=== PATIENT | male | born 2000 | race African-American/Black ===

== ENCOUNTER 2021-11-05 15:10 | Emergency (ER) | payer OTHER ==
--- NOTE | 2021-11-05 15:52 | XRay Report ---
CHEST 1 VIEW 11/05/2021 3:31 PM INDICATION / CLINICAL INFORMATION: Altered Mental Status. COMPARISON: None available. FINDINGS: SUPPORT DEVICES: None. HEART / MEDIASTINUM: The heart size and pulmonary vasculature are normal. LUNGS / PLEURA: No significant pulmonary or pleural abnormality. No pneumothorax. ADDITIONAL FINDINGS: No significant additional findings. IMPRESSION: No acute findings. Signer Name: Eddi Amezcua MD Signed: 11/05/2021 3:47 PM Workstation Name: [id number]
[2021-11-05 16:04] LABS: Basophils % (Auto) 0.3 % (0.0-1.8); Eosinophils % (Auto) 0.1 % (0.0-4.3); Hematocrit 43.1 % (35.5-45.6); Hemoglobin 14.7 gm/dl (11.8-15.2); Lymphocytes # (Auto) 1.2 K/mm3 (1.2-5.4); Lymphocytes % (Auto) 20.3 % (13.4-35.0); Mean Corpuscular HGB Conc 34 % (32-34); Mean Corpuscular Volume 85 fl (84-94); Monocytes # (Auto) 0.2 K/mm3 (0.0-0.8); Monocytes % (Auto) 4.1 % (0.0-7.3); Platelet Count 158 K/mm3 (140-440); Red Blood Count 5.09 M/mm3 (3.65-5.03); Red Cell Distribution Width 13.7 % (13.2-15.2)
[2021-11-05] MEDS ORDERED: SODIUM CHLORIDE 0.9% 1000 ML 1,000 ML ONE (16:12)
[2021-11-05 16:14] LABS: INR 0.85 (0.87-1.13)
[2021-11-05 16:15] LABS: Partial Thromboplastin Time 33.8 Sec. (24.2-36.6)
[2021-11-05] MEDS ORDERED: SODIUM CHLORIDE 0.9% 1000 ML 1,000 ML IV ONE (16:15)
[2021-11-05 16:29] LABS: Alanine Aminotransferase 24 units/L (7-56); Albumin 4.8 g/dL (3.9-5); Blood Urea Nitrogen 16 mg/dL (9-20); Calcium 8.9 mg/dL (8.4-10.2); Hemolysis Index 12
[2021-11-05 16:31] LABS: BUN/Creatinine Ratio 27
[2021-11-05 18:31] VITALS: BP 102/57
--- NOTE | 2021-11-05 19:09 | Emergency Department Report ---
History of Present Illness - General Chief Complaint: Overdose Stated Complaint: TYLENOL OVERDOSE Time Seen by Provider: 11/05/21 15:26 Source: EMS Mode of arrival: Stretcher Limitations: No Limitations - History of Present Illness Initial Comments: pt took 10 tylenol 500 mg tabs , over 40 minutes trying to sleep, brother called EMS because he was concerned about him, spoke to patient but he denies any SI he jsut wanted to sleep, pt had recent break up but denies any depression. mother doens;t speak [place] but brother thinks he was sad , patient denies repeatedly any SI or being depressed MD Complaint: accidental overdose -: Gradual, hour(s) Intent: want to go to sleep How Overdose Was Discovered: family/friend present Context: Intentional Overdose: relationship problems Treatments Prior to Arrival: none - Related Data Allergies Allergy/AdvReac Type Severity Reaction Status Date / Time No Known Allergies Allergy Verified 11/05/21 15:55 ED Review of Systems ROS: Stated complaint: TYLENOL OVERDOSE Other details as noted in HPI Constitutional: denies: chills, fever Eyes: denies: eye pain, eye discharge, vision change ENT: denies: ear pain, throat pain Respiratory: denies: cough, shortness of breath, wheezing Cardiovascular: denies: chest pain, palpitations Endocrine: no symptoms reported Gastrointestinal: denies: abdominal pain, nausea, diarrhea Genitourinary: denies: urgency, dysuria Musculoskeletal: denies: back pain, joint swelling, arthralgia Skin: denies: rash, lesions Neurological: denies: headache, weakness, paresthesias Psychiatric: denies: anxiety, depression Hematological/Lymphatic: denies: easy bleeding, easy bruising ED Past Medical Hx - Past Medical History Previous Medical History?: No - Surgical History Past Surgical History?: No - Social History Smoking Status: Never Smoker ED Physical Exam - General Limitations: No Limitations General appearance: alert, anxious - Head Head exam: Present: atraumatic, normocephalic - Eye Eye exam: Present: normal appearance - ENT ENT exam: Present: mucous membranes moist - Neck Neck exam: Present: normal inspection - Respiratory Respiratory exam: Present: normal lung sounds bilaterally. Absent: respiratory distress - Cardiovascular Cardiovascular Exam: Present: regular rate, normal rhythm. Absent: systolic murmur, diastolic murmur, rubs, gallop - GI/Abdominal GI/Abdominal exam: Present: soft, normal bowel sounds - Rectal Rectal exam: Present: deferred - Extremities Exam Extremities exam: Present: normal inspection - Back Exam Back exam: Present: normal inspection - Neurological Exam Neurological exam: Present: alert, oriented X3 - Psychiatric Psychiatric exam: Present: normal affect, depressed, anxious - Skin Skin exam: Present: warm, dry, intact, normal color. Absent: rash ED Course Vital Signs 11/05/21 11/05/21 11/05/21 15:20 15:40 15:41 Temperature 98.1 F Pulse Rate 77 77 Respiratory 15 14 15 Rate Blood Pressure 116/64 116/64 Blood Pressure [Left] O2 Sat by Pulse 99 98 96 Oximetry 11/05/21 11/05/21 11/05/21 15:43 16:00 17:00 Temperature 98.0 F Pulse Rate 7 L 79 75 Respiratory 15 12 13 Rate Blood Pressure 111/69 102/57 Blood Pressure 116/64 [Left] O2 Sat by Pulse 96 98 99 Oximetry ED Medical Decision Making - Lab Data Result diagrams: 11/05/21 15:46 11/05/21 15:46 - Radiology Data Radiology results: report reviewed, image reviewed - Medical Decision Making work up initially shwoed elevated tylenol level , spoke with poison control, repeat tylenol in 4 hours which was trending down, vss, no distress, no SI , referred to psych OP Critical care attestation.: If time is entered above; I have spent that time in minutes in the direct care of this critically ill patient, excluding procedure time. ED Disposition Clinical Impression: Accidental overdose, Adjustment disorder Disposition: 01 HOME / SELF CARE / HOMELESS Is pt being admited?: No Does the pt Need Aspirin: No Condition: Stable Instructions: Accidental Drug Poisoning, Adult, Adjustment Disorder, Adult Referrals: YAZ RODAS [Other] - 3-5 Days DAVY GAUTHIER MD [Referring] - 3-5 Days
[2021-11-05 19:42] LABS: Bilirubin,Urine NEG (Negative); Blood,Urine NEG (Negative); Color,Urine Yellow (Yellow); Mucus,Urine FEW /HPF; Protein,Urine <15 mg/dL mg/dL (Negative); Urobilinogen,Urine < 2.0 mg/dL (<2.0); WBC,Urine < 1.0 /HPF (0.0-6.0)
[2021-11-05 20:33] LABS: Amphetamine Screen,Urine PRESUMPTIVE NEGATIVE; Benzodiazepines Screen,Urine PRESUMPTIVE NEGATIVE; Cannabinoid Screen,Urine PRESUMPTIVE NEGATIVE; Cocaine Screen,Urine PRESUMPTIVE NEGATIVE; Methadone Screen,Urine PRESUMPTIVE NEGATIVE; Opiate Screen,Urine PRESUMPTIVE NEGATIVE
--- NOTE | 2021-11-06 19:25 | Electrocardiograph Report ---
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
== END 2021-11-05 19:54 | disposition home or self-care (01) ==
LOC: ED 15:10
DX: T39.1X1A Poisoning by 4-Aminophenol derivatives, accidental (unintentional), initial encounter (principal); Y92.89 Other specified places as the place of occurrence of the external cause; F43.20 Adjustment disorder, unspecified
CPT/HCPCS: 36415; 71045; 80053; 80307; 81001; 82550; 84484; 85025; 85610; 85730; 93005; 99284; J7030; 80320; Q0162; G0480